=== PATIENT | male | born 1970 | race Caucasian/White ===

== ENCOUNTER 2017-02-06 22:05 | Emergency (ER) | payer MEDICAID ==
[~2017-02-06] VITALS: Ht 167.6 cm; Wt 68.2 kg
[~2017-02-06 22:05] MED LIST: AMLO-511 PO; LEVO500 PO; METF500T4 PO; PRED10 PO
[2017-02-06 22:26] LABS: GLUCOSE,POINT OF CARE 250 MG/DL (70-110)
[2017-02-06] MEDS ORDERED: PRAV40 PO (22:34)
[2017-02-06] MEDS ORDERED: INSLAN SQ (22:34)
[2017-02-06] MEDS ORDERED: GLIP5 PO (22:34)
[2017-02-06] MEDS ORDERED: BACTDSB PO (22:34)
[2017-02-06 23:12] LABS: BASOPHILS % (AUTO) 0.3 % (0.0-2.0); EOSINOPHILS % (AUTO) 0 % (1.0-6.0); HEMATOCRIT 43.9 % (41-53); HEMOGLOBIN 14.3 g/dL (13.5-17.5); LYMPHOCYTES % (AUTO) 7.8 % (22.0-44.0); MEAN CORPUSCULAR HEMOGLOBIN 29.3 pg (26.0-34.0); MEAN CORPUSCULAR HGB CONC 32.6 G/dL (31.0-37.0); MEAN CORPUSCULAR VOLUME 90 fL (80-100); MONOCYTES # (AUTO) 0.6 K/uL (0.1-1.0); MONOCYTES % (AUTO) 4.5 % (2.0-9.0); NEUTROPHILS # (AUTO) 10.9 K/uL (1.8-7.7); PLATELET COUNT (AUTO) 177 K/uL (150-450); RED BLOOD CELL COUNT(AUTO) 4.89 MIL/uL (4.50-5.90); RED CELL DISTRIBUTION WIDTH 12.9 % (11.5-14.5); WHITE BLOOD COUNT (AUTO) 12.5 K/uL (4.5-11.0)
[2017-02-06 23:13] LABS: NEUTROPHILS % (AUTO) 87.4 % (40.0-70.0)
[2017-02-06 23:39] LABS: ALANINE AMINOTRANSFERASE 42 U/L (12-78); ALBUMIN 3.7 g/dL (3.4-5.0); ANION GAP 0 mmol/L (8-16); ASPARTATE AMINOTRANSFERASE 13 U/L (15-37); BILIRUBIN,TOTAL 0.3 mg/dL (0.1-1.0); CALCIUM, TOTAL 8.7 mg/dL (8.8-10.5); CHLORIDE 89 mmol/L (98-107); CREATININE 0.73 mg/dL (0.60-1.30); GLOMERULAR FILTR. RATE CALC > 60 mL/min (>60); POTASSIUM 5.1 mmol/L (3.5-5.1); SODIUM SERUM 133 mmol/L (136-145); UREA NITROGEN, BLOOD 16 mg/dL (7-18)
[2017-02-06 23:47] LABS: CARBON DIOXIDE 44 mmol/L (22-29)
[2017-02-06 23:53] LABS: B-TYPE NATRIURETIC PEPTIDE 12 pg/mL (0-100)
[2017-02-07] MEDS ORDERED: SODIUM CHLORIDE 0.9% 1,000 ML IV ONE
[2017-02-07 00:11] LABS: GLUCOSE,POINT OF CARE 194 MG/DL (70-110)
[2017-02-07 01:03] VITALS: BP 132/85
== END 2017-02-07 01:53 | disposition home or self-care (01) ==
LOC: EMS 22:06
DX: E11.65 Type 2 diabetes mellitus with hyperglycemia (principal); I10 Essential (primary) hypertension; F15.90 Other stimulant use, unspecified, uncomplicated; Z79.4 Long term (current) use of insulin
CPT/HCPCS: 36415; 80053; 82948; 82962; 83880; 84484; 85025; 93005; 96360; 99285; J7030